=== PATIENT | female | born 1935 | race Two or more races ===

== ENCOUNTER 2022-08-14 07:11 | Inpatient (IN) | payer MEDICARE, OTHER ==
[~2022-08-14] VITALS: Ht 157.5 cm; Wt 63.0 kg
--- NOTE | 2022-08-14 07:20 | NUR ---
RT NOTE PLACED PT ON BIPAP MODE WITH SETTINGS PER MD ORDER. MONITORING CLOSELY FOR ANY CHANGE OF CONDITION. RN AT BEDSIDE AND AWARE.
--- NOTE | 2022-08-14 07:21 | NUR ---
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 Recieced nitro x2 sprays HVAC SALES ENGINEER. Pt A/Ox3. Connected pt to POX and monitor. Safety measures in place.
[2022-08-14] MEDS ORDERED: NITROGLYCERIN PACKET 1 GM PACKET ONE (07:22)
--- NOTE | 2022-08-14 07:27 | NUR ---
BLOOD COLLECTED AND SENT TO LAB
--- NOTE | 2022-08-14 07:27 | NUR ---
BS 194; DR CONSUELO LOUIS AWARE
--- NOTE | 2022-08-14 07:29 | NUR ---
PT IN ROOM ON RESCUE BIPAP O2 SAT 98% RR 27, BREATHING USING ABDOMINAL MUSCLES. 20G ON RIGHT AND LFET AC BLOOD AND CULTURES DRAWN AND SENT TO LAB. BEDSIDE MONITOR SHOWS HYPERTENSION SBP 180MMHG. HR 86 SR. EKG DONE. WAITING FOR CHEST XRAY. NITRO PATCH APPLIED HOOKED UP TO MONITOR FOR OBSERVATION.
[2022-08-14] MEDS ORDERED: NITROGLYCERIN PACKET 1 GM PACKET TOP ONE (07:30)
[2022-08-14 07:54] LABS: BASOPHILS % (AUTO) 0.4 % (0.0-2.0); EOSINOPHILS % (AUTO) 2.8 % (0.0-6.0); HEMATOCRIT 35 % (33-45); LYMPHOCYTES # (AUTO) 3.4 K/uL (0.8-4.8); LYMPHOCYTES % (AUTO) 30.4 % (20.0-44.0); MEAN CORPUSCULAR HGB CONC 32 g/dl (31.0-36.0); MEAN CORPUSCULAR VOLUME 91 fL (82-100); MONOCYTES # (AUTO) 0.7 K/uL (0.1-1.30); MONOCYTES % (AUTO) 6.6 % (2.0-12.0); NEUTROPHILS # (AUTO) 6.7 K/uL (1.8-8.9); NEUTROPHILS % (AUTO) 59.8 % (43.0-81.0); PLATELET COUNT (AUTO) 274 K/uL (150-450); RED BLOOD CELL COUNT(AUTO) 3.83 MIL/uL (4.0-5.2); WHITE BLOOD COUNT (AUTO) 11.1 K/uL (4.3-11.0)
[2022-08-14 08:03] LABS: CALCIUM, SERUM 8.9 mg/dL (8.5-10.1); CARBON DIOXIDE 21 mmol/L (21-32); CHLORIDE 100 mmol/L (98-107); CREATININE 1.5 mg/dL (0.6-1.3); GLUCOSE 328 mg/dL (74-106); POTASSIUM 3.9 mmol/L (3.5-5.1); SODIUM SERUM 133 mmol/L (136-145); UREA NITROGEN, BLOOD 36 mg/dL (7-18)
[2022-08-14 08:10] LABS: ALANINE AMINOTRANSFERASE 17 U/L (12-78); ALBUMIN 3.4 g/dL (3.4-5.0); ALKALINE PHOSPHATASE 116 U/L (46-116); ASPARTATE AMINOTRANSFERASE 17 U/L (15-37); BILIRUBIN,DIRECT 0.1 mg/dL (0.0-0.2); BILIRUBIN,TOTAL 0.3 mg/dL (0.2-1.0); TOTAL PROTEIN, SERUM 7.4 g/dL (6.4-8.2)
--- NOTE | 2022-08-14 08:21 | NUR ---
MOVE SHEET SUBMITTED.
--- NOTE | 2022-08-14 08:25 | NUR ---
URINE SAMPLE COLLECTED AND SENT TO LAB
[2022-08-14] MEDS ORDERED: LATA5DRO EACHEYE (08:53)
[2022-08-14] MEDS ORDERED: ICOS1CAP PO (08:53)
[2022-08-14] MEDS ORDERED: LOSA1TAB39 PO (08:53)
[2022-08-14] MEDS ORDERED: BRIN8DRO2 EACHEYE (08:53)
[2022-08-14] MEDS ORDERED: SITA100T PO (08:53)
[2022-08-14] MEDS ORDERED: ZOLP5TAB8 PO (08:53)
[2022-08-14] MEDS ORDERED: DONE5TAB34 PO (08:53)
[2022-08-14] MEDS ORDERED: METF-440 PO (08:53)
[2022-08-14] MEDS ORDERED: OMEP40CA21 PO (08:53)
--- NOTE | 2022-08-14 09:20 | NUR ---
RT NOTE REMOVED PATIENT OFF BIPAP AND PLACED ON SIMPLE MASK @8LPM. DR. CORDERO AT BEDSIDE WITH FAMILY. NO SOB NOTED AT THIS TIME. WILL CONTINUE TO MONITOR FOR ANY CHANGES.
--- NOTE | 2022-08-14 09:21 | NUR ---
RT IN ROOM TRANSITIONED TO SIMPLE MASK 8L
[2022-08-14 09:31] LABS: BILIRUBIN,URINE NEGATIVE (NEGATIVE); COLOR,URINE YELLOW (YELLOW); LEUKOCYTE ESTERASE ,URINE TRACE (NEGATIVE); NITRITE, URINE NEGATIVE (NEGATIVE); PROTEIN,URINE 2+ mg/dl (NEGATIVE); UGLUCOSE 3+ mg/dL (NEGATIVE); UROBILINOGEN,URINE 0.2 EU/dL (0.2)
[2022-08-14] MEDS ORDERED: FUROSEMIDE 40 MG/4 ML VIAL IV ONE (10:00)
[2022-08-14] MEDS ORDERED: FUROSEMIDE 40 MG/4 ML VIAL ONE (10:01)
[2022-08-14 10:11] LABS: BACTERIA,URINE Rare /HPF (None Seen); RBC,URINE 0-2 /HPF (0-2); SQUAMOUS EPITHELIAL CELL,UR Few /HPF (None Seen)
--- NOTE | 2022-08-14 10:11 | NUR ---
400ML OUT PUT FROM URINE VENEGAS
--- NOTE | 2022-08-14 10:17 | NUR ---
[facility] CALLED LOCATION ANALYST PAGED.
--- NOTE | 2022-08-14 10:48 | NUR ---
GOT BED 103 ADMITTING INFORMED.
--- NOTE | 2022-08-14 11:26 | NUR ---
PT TRANSPORTED W/ ACLS TRANSPORT
[2022-08-14] MEDS ORDERED: ONDANSETRON HCL/PF 4 MG/2 ML VIAL IVP PRN (11:30)
[2022-08-14] MEDS ORDERED: hydrALAZINE HCL IV 20 MG VIAL IV PRN (11:30)
[2022-08-14] MEDS ORDERED: ALBUTEROL FS 2.5 MG/0.5 ML VIAL.NEB NEB PRN (11:30)
[2022-08-14] MEDS ORDERED: DEXTROSE 50%-WATER 50 ML DISP.SYRIN IV PRN (11:30)
[2022-08-14] MEDS ORDERED: MORPHINE SULFATE INJ 2 MG/ML DISP.SYRIN IV PRN (11:30)
--- NOTE | 2022-08-14 11:30 | NUR ---
RN NEW PATIENT FROM ER NOTE PATIENT ARRIVED FROM ER AT 1130 VIA GURNEY. PATIENT IS A/O 3 LATVIAN SPEAKING ONLY, IF PATIENT'S DAUGHTER IS NOT AT BED SIDE WE WILL NEED AN MEAT SOAKER. PATIENT ON SIMPLE MASK 8 LITTERS O2 SAT 98%. IV SITE RAC AND LAC 20 GAUGE BOTH INTACT AND FLUSHING. PATIENT WITH VENEGAS CATHETER INSERTED IN ER WITH CLEAR URINE. PATIENT'S VITALS UPON ARRIVAL WNL, NO SOB OR DISTRESS NOTED. WILL CONTINUE THE CARE THROUGHT THE SHIFT.
[2022-08-14] MEDS: BLOOD SUGAR DIAGNOSTIC 1 EACH STRIP VI SCH ×4 (11:51→22:16)
[2022-08-14 12:00] VITALS: BP 161/82
[2022-08-14] MEDS ORDERED: IPRATROPIUM/ALBUTEROL INHALER IH SCH (12:00)
[2022-08-14] MEDS: FUROSEMIDE 40 MG/4 ML VIAL IV SCH ×2 (12:03→16:34)
[2022-08-14] MEDS: HEPARIN SODIUM, PORCINE 5000 UNITS/1 ML VIAL SQ SCH ×2 (12:08→21:51)
[2022-08-14] MEDS: ACETAMINOPHEN 325 MG TABLET PO PRN (12:18)
[2022-08-14] MEDS: LOSARTAN POTASSIUM 50 MG TABLET PO SCH (12:27)
[2022-08-14] MEDS: HYDROCHLOROTHIAZIDE 25 MG TABLET PO SCH (12:30)
[2022-08-14] MEDS: INSULIN REGULAR, HUMAN 100 UNIT/ML 3 ML VIAL SQ PRN ×2 (13:34→17:09)
[2022-08-14] MEDS: ALBUTEROL FS 2.5 MG/3 ML VIAL.NEB NEB SCH ×2 (14:26→21:17)
[2022-08-14] MEDS: IPRATROPIUM NEB FS 0.5 MG/2.5 ML AMPUL.NEB NEB SCH ×2 (14:26→21:17)
--- NOTE | 2022-08-14 14:30 | NUR ---
RN NOTE PATIENT HAS CRAMPS ON HER LOWER EXTREMITIES DR. WALLACE NOTIFIED HE ORDERED MAGNESIUM OXIDE 400 MG PO DAILY, BUT I ORDERED MAGNESIUM LEVEL DRAW WHICH CAME RICH. MAG OXIDE ADMINISTERED TO PATIENT. AT 1300 PATIENT ASKED FRO MORPHINE WHICH COULD MINIMIZED THE PAIN.
--- NOTE | 2022-08-14 14:47 | NUR ---
PATIENT FORGETFUL AND HIGH RISK FOR FALL,BEDALARM ON,SIDERAILSX3 UP .DAUGHTER WANTS TO STAY OVERNITE FOR SAFETY,REASON LIONEL THE PT. NO MD ORIANA NOTIFIED AND OK WITH IT,NURSING SUP NOTIFIED AND OK.
--- NOTE | 2022-08-14 15:00 | NUR ---
RN NOTE RT CHANGED THE SIMPLE MASK 8 LITTERS TO NC 6 LITERS
[2022-08-14] MEDS: MAGNESIUM OXIDE 400 MG TABLET PO SCH (15:04)
[2022-08-14 16:00] VITALS: BP 99/56
[2022-08-14] MEDS: SIMBRINZA EACHEYE SCH (16:34)
[2022-08-14] MEDS: EYE EACHEYE SCH (16:34)
--- NOTE | 2022-08-14 18:48 | NUR ---
RN NOTE PATIENT SITTING IN CHAIR DAUGHTER AT BED SIDE ON NC 6 LITTERS O2 SAT 97%. WILL ENDORSE THE PATIENT TO PM NURSE FOR DUSTIN.
--- NOTE | 2022-08-14 19:30 | NUR ---
SUPERVISOR FABRICATION DEPARTMENT OPENING NOTES - RECEIVED PATIENT SITTING ON CHAIR, DAUGHTER ON BEDSIDE. A/O X3, ROMANSH SPEAKING. BREATHING EVEN AND NON-LABORED, ON O2 AT 6LPM VIA NASAL CANULA. NOT IN APPARENT DISTRESS. DAUGHTER VERBALIZED THAT THE PATIENT NORMALLY EXPERIENCES BILATERAL LOWER EXTREMITY CRAMPS WHEN LAYING DOWN. ON TELE MONITOR READING SINUS RHYTHM AT 89 BPM. HAS LEFT ANTECUBITAL IV ACCESS #18G AND SALINE LOCKED. NO S/S OF INFILTRATION NOTED. HAS INDWELLING VENEGAS CATHETER DRAINING CLEAR YELLOW URINE TO BAG BY GRAVITY. SAFETY PRECAUTIONS IN PLACE: BED LOCKED AND IN LOW POSITION, SIDE RAILS UP X2, CALL LIGHT WITHIN REACH. WILL CONTINUE PLAN OF CARE.
--- NOTE | 2022-08-14 19:38 | NUR ---
RN NOTE DR. WALLACE ORDERED ZOLPIDEM 10 MG PRN FOR INSOMNIA. I PLACE THE ORDER SO PATIENT CAN HAVE IT FOR TONIGHT.
[2022-08-14 20:00] VITALS: BP 117/81
[2022-08-14] MEDS ORDERED: ZOLPIDEM TARTRATE 10 MG TABLET PO PRN (20:00)
[2022-08-14] MEDS ORDERED: VYZULTA EYE EACHEYE SCH (22:00)
[2022-08-14] MEDS ORDERED: BRIMONIDINE TARTRATE OPHT SOLN 5 ML BOTTLE EACHEYE SCH (22:00)
[2022-08-14] MEDS ORDERED: BRINZOLAMIDE 1 % OPHTH SOLN 10 ML BOTTLE OP SCH (22:00)
--- NOTE | 2022-08-14 22:00 | NUR ---
DAUGHTER REQUESTED TO GIVE PATIENT AMBIEN BEFORE SLEEPING SINCE SHE TAKES ONE EVERY NIGHT AT HOME. GIVEN AND TOLERATED WELL. WILL MONITOR TO PREVENT FALLS.
[2022-08-14] MEDS: *INSULIN REGULAR(HUMULIN R)HUM 100 UNIT/ML VIAL SQ PRN (22:22)
[2022-08-15] VITALS: BP 139/76
[2022-08-15] MEDS: IPRATROPIUM NEB FS 0.5 MG/2.5 ML AMPUL.NEB NEB SCH ×3 (01:30→15:01)
[2022-08-15] MEDS: ALBUTEROL FS 2.5 MG/3 ML VIAL.NEB NEB SCH ×2 (01:30→08:17)
[2022-08-15 04:00] VITALS: BP 139/68
[2022-08-15] MEDS: INSULIN REGULAR, HUMAN 100 UNIT/ML 3 ML VIAL SQ PRN (06:44)
[2022-08-15] MEDS: BLOOD SUGAR DIAGNOSTIC 1 EACH STRIP VI SCH ×2 (06:44→12:56)
--- NOTE | 2022-08-15 07:04 | NUR ---
CAR CARDER CLOSING NOTES - PATIENT SLEEPING IN BED. ABLE TO RELAY SOME NEEDS. NO ACUTE DISTRESS THROUGHOUT THE NIGHT. NO SOB OR NOTED, TOLERATING O2 AT 4LPM WELL VIA NASAL CANULA. NO S/S OF PAIN OR DISCOMFORT AT THIS TIME. AFEBRILE. ON TELE MONITOR READING SINUS RHYTHM WITH OCCASIONAL PVC AND PAC AT 80 BPM. LEFT ANTECUBITAL IV ACCESS INTACT, PATENT AND FLUSHING. CLEAR YELLOW URINE NOTED. ALL DUE MEDS GIVEN AND NEEDS ATTENDED. SAFETY PRECAUTIONS MAINTAINED. WILL ENDORSE TO NEXT SHIFT FOR DUSTIN.
--- NOTE | 2022-08-15 07:10 | NUR ---
J2EE ANDROID DEVELOPER OPENING NOTE PATIENT AWAKE IN BED, ALERT AND ORIENTED, ABLE TO VERBALIZE NEEDS. NO ACUTE DISTRESS, NO SOB NOTED. O2 AT 4LPM VIA NASAL CANULA, TOLERATED WELL, SAT 94%. ON TELE MONITOR READING SINUS RHYTHM WITH OCCASIONAL PVC AND PAC AT 80 BPM. LEFT AC IV ACCESS INTACT, PATENT AND FLUSHING. VENEGAS CATHETER DRAINING CLEAR YELLOW URINE. SAFETY PRECAUTIONS MAINTAINED.
[2022-08-15 07:24] LABS: ALANINE AMINOTRANSFERASE 18 U/L (12-78); ALBUMIN 3.4 g/dL (3.4-5.0); ALKALINE PHOSPHATASE 75 U/L (46-116); ASPARTATE AMINOTRANSFERASE 22 U/L (15-37); BASOPHILS % (AUTO) 0.1 % (0.0-2.0); BILIRUBIN,TOTAL 0.3 mg/dL (0.2-1.0); CALCIUM, SERUM 9.9 mg/dL (8.5-10.1); CARBON DIOXIDE 28 mmol/L (21-32); CHLORIDE 101 mmol/L (98-107); CREATININE 1.5 mg/dL (0.6-1.3); EOSINOPHILS % (AUTO) 1.6 % (0.0-6.0); GLUCOSE 126 mg/dL (74-106); HEMATOCRIT 33 % (33-45); HEMOGLOBIN 10.7 g/dL (11.5-14.8); LYMPHOCYTES # (AUTO) 1.3 K/uL (0.8-4.8); LYMPHOCYTES % (AUTO) 15.2 % (20.0-44.0); MAGNESIUM 2.1 mg/dL (1.8-2.4); MEAN CORPUSCULAR HGB CONC 33 g/dl (31.0-36.0); MEAN CORPUSCULAR VOLUME 88 fL (82-100); MONOCYTES # (AUTO) 0.7 K/uL (0.1-1.30); MONOCYTES % (AUTO) 8.2 % (2.0-12.0); NEUTROPHILS # (AUTO) 6.2 K/uL (1.8-8.9); NEUTROPHILS % (AUTO) 74.9 % (43.0-81.0); PHOSPHORUS 6.7 mg/dL (2.5-4.9); PLATELET COUNT (AUTO) 221 K/uL (150-450); POTASSIUM 3.9 mmol/L (3.5-5.1); SODIUM SERUM 138 mmol/L (136-145); TOTAL PROTEIN, SERUM 7.2 g/dL (6.4-8.2); UREA NITROGEN, BLOOD 35 mg/dL (7-18); WHITE BLOOD COUNT (AUTO) 8.2 K/uL (4.3-11.0)
[2022-08-15 08:00] VITALS: BP 144/92
[2022-08-15] MEDS: ACETAMINOPHEN 325 MG TABLET PO PRN (08:02)
--- NOTE | 2022-08-15 08:02 | NUR ---
PT COMPLAINED BILATERAL LEG PAIN 5 OUT OF 10, STATED THAT THIS PAIN IS HER CHRONIC PROBLEM FOR MANY YEARS. TYLENOL 650MG GIVEN.
[2022-08-15] MEDS: FUROSEMIDE 40 MG/4 ML VIAL IV SCH (08:45)
[2022-08-15] MEDS: HYDROCHLOROTHIAZIDE 25 MG TABLET PO SCH (08:47)
[2022-08-15] MEDS: LOSARTAN POTASSIUM 50 MG TABLET PO SCH (08:47)
[2022-08-15] MEDS: HEPARIN SODIUM, PORCINE 5000 UNITS/1 ML VIAL SQ SCH (08:51)
[2022-08-15] MEDS: MAGNESIUM OXIDE 400 MG TABLET PO SCH (08:54)
[2022-08-15] MEDS: SIMBRINZA EACHEYE SCH ×2 (08:56→13:06)
[2022-08-15] MEDS: EYE EACHEYE SCH ×2 (08:56→13:06)
[2022-08-15] MEDS ORDERED: DONEPEZIL 5 MG TABLET PO SCH (09:00)
[2022-08-15] MEDS ORDERED: ICOSAPENT ETHYL PO SCH (09:00)
[2022-08-15] MEDS ORDERED: Medication Not On Formulary EA (Losartan/Hydrochlorothiazide (Losartan-Hctz 100-25 Mg Ta PO SCH (09:00)
[2022-08-15] MEDS ORDERED: PANTOPRAZOLE 40 MG TABLET.DR PO SCH (09:00)
--- NOTE | 2022-08-15 09:00 | NUR ---
PATIENTS CONDITION IMPROVED, NO PAIN AT THIS TIME. CONTINUE TO MONITOR.
[2022-08-15] MEDS ORDERED: POTA20TA83 PO (11:52)
[2022-08-15] MEDS ORDERED: FURO-144 PO (11:52)
[2022-08-15 12:00] VITALS: BP 93/53
[2022-08-15 13:00] VITALS: BP 93/52
[2022-08-15] MEDS ORDERED: METOPROLOL TARTRATE 25 MG TABLET PO SCH (13:00)
[2022-08-15] MEDS: *INSULIN REGULAR(HUMULIN R)HUM 100 UNIT/ML VIAL SQ PRN (13:10)
[2022-08-15] MEDS ORDERED: ALBUTEROL HALF STRENGTH 1.25 MG/3 ML VIAL.NEB NEB SCH (13:30)
--- NOTE | 2022-08-15 15:05 | NUR ---
HALL MONITOR NOTE PER DR BROWN ORDER, PATIENT READY FOR DISCHARGE. AMBULATED USING WALKER WITH ASSISTANCE, TOLERATED WELL. O2 SATURATION 97% ON RA. VENEGAS CATHETER DISCONNECTED, NO DISCOMFORT REPORTED. IV ACCESS LEFT AC D/C, NO REDDNESS OR INFLAMATION NOTED. DISCHARGE INSTRUCTION, MEDICATION EDUCATION, DISEASE PROCESS TEACHING PROVIDED TO PATIENTS DAUGHTER AND PATIENT, VERBALIZED UNDERSTANDING. PT WILL GO HOME ACCOMPANIED BY DAUGHTER, HAS HOME HEALTH AGENCY AND FAMILY DOCTOR TO FOLLOW UP WITH.
[2022-08-16] MEDS ORDERED: NETARSUDIL EACHEYE SCH (09:00)
== END 2022-08-15 16:02 | disposition home health service (06) | DRG 291 ==
LOC: EDBD 07:19 → ER 07:19 → ICUOV 11:00 → TELE-TD 11:30 → TELE1 11:32
PROVIDERS: ADMIT Internal Medicine; ATTEND Internal Medicine
DX: I13.0 Hypertensive heart and chronic kidney disease with heart failure and stage 1 through stage 4 chronic kidney disease, or unspecified chronic kidney disease (principal); I50.33 Acute on chronic diastolic (congestive) heart failure; N17.0 Acute kidney failure with tubular necrosis; J96.01 Acute respiratory failure with hypoxia; E87.20 Acidosis, unspecified; E11.22 Type 2 diabetes mellitus with diabetic chronic kidney disease; Z20.822 Contact with and (suspected) exposure to COVID-19; Z79.84 Long term (current) use of oral hypoglycemic drugs; Z79.899 Other long term (current) drug therapy; E78.5 Hyperlipidemia, unspecified; I08.0 Rheumatic disorders of both mitral and aortic valves; N18.9 Chronic kidney disease, unspecified
CPT/HCPCS: 36415; 71045-TC; 80048-TC; 80053-TC; 80076-TC; 81001; 82962-TC; 83605-TC; 83735-TC; 83880; 84100-TC; 84484-TC; 85025-TC; 85730-TC; 87040-TC; 87081-TC; 87086-TC; 93307-TC; 94799-TC; 97112-TC; 97116-TC; 97530-TC; C9803; G0378; J0360; J1644; J1815; J1940; J2270